=== PATIENT | female | born 1985 | race Caucasian/White ===

== ENCOUNTER → 2016-05-01 | Outpatient (CLI) | payer OTHER ==
[~2016-05-01] MED LIST: IBUP-1427 PO; OXYC5TAB PO; PEDICHW50 PO
== END | disposition home or self-care (01) ==
LOC: C.PAPS 11:36
PROVIDERS: ATTEND Physician Assistant
DX: Z12.4 Encounter for screening for malignant neoplasm of cervix (principal)

== ENCOUNTER 2022-04-29 07:09 | Inpatient (IN) ==
[2022-04-29] MEDS ORDERED: LACTATED RINGER'S 1,000 ML IV SCH ×2 (08:30→11:10)
--- NOTE | 2022-04-29 08:41 | History & Physical Report ---
Date of Service April 29, 2022 Assessment & Plan (1) Previous delivery affecting , antepartum: Plan: Reviewed informed consent with patient. Given her discomfort, contractions, and 39w gestation, I am recommending that we proceed with section. She is agreeable. Questions answered. She is anxious, provided emotional support. Will call in 2nd surgeon d/t h/o cs x 2. History of Present Illness Chief Complaint: contractions Primary Care Provider: Elle Sorto, DO 36yo @ 39 0/7, presented to L&D with painful contractions. They are irregular. No ROM, no vaginal bleeding. + movement. AMA Weekly NST's @ 36 weeks Prior x2 - LTCS on Op report - 39 week repeat C/S SCHEDULED FOR 05/04/[address] CHAVIS AND [address] EDWARDS ASSIST small calcifications near stomach Right CP cyst at 20 week scan persists in 24 week US MFM Consult (02/08/22 @ [facility] [place])--prominent stomach lining with some echogenic areas--nl variant consider TORCH CP cysts in patient with low risk panorama--no f/u indicated Allergies Allergy/AdvReac Type Severity Reaction Status Date / Time codeine Allergy Intermediate Hives Verified 04/29/22 07:29 (with tylenol + codeine, tolerates tylenol alone) Sulfa (Sulfonamide Allergy Intermediate hives Verified 04/29/22 07:29 Antibiotics) doxycycline AdvReac Mild Nausea Verified 04/29/22 07:29 Home Medications Medication Instructions Recorded Confirmed Type pediatric multivitamin no.76 1 tab PO BID 09/18/21 04/29/22 History (Flintstones Complete chewable tablet) Patient History Medical History Anxiety Bruxism (teeth grinding) 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 Cardiac murmur Echo performed 2018 for murmur evaluation > No significant valvular disease found Chronic lower back pain History of gastric ulcer As child History of gastroesophageal reflux (GERD) Diet controlled History of palpitations s/p unremarkable holter approximately 5 years ago per pt, no recent issues noted Surgical History History of dental surgery History of verrucae (wart) excision S/P section x2 Family History Grandmother (Paternal) Lung cancer Grandmother (Maternal) Breast cancer Other No family history of adverse response to anesthesia Denies family history of Ovarian cancer Prostate cancer Colorectal cancer Social History (Updated 04/29/22 @ 07:28 by Mae Walls RN) Smoking Status: Former smoker Second Hand Exposure: No; Hx Alcohol Use: No Hx Substance Use: No Preferred Language: Ivorian Communication Ability: Effective Echometer Engineer Required: No Beliefs That Will Affect Care: None marital status: marital status details: Stevie Bills (Lee) Current Living Situation: Spouse Current Living Situation Comment: Lives with and children current occupational status: unemployed 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 SVE: very painful exam, unable to fully reach cervix d/t patient's extreme discomfort. station is low in pelvis, cervix feels thin, but unable to really fully evaluate cervix during exam. Constitutional: WD/WN, vitals as above Respiratory: normal respiratory effort, lungs clear to auscultation no respiratory distress Cardiovascular: Rate/Rhythm: regular rate and regular rhythm Gastrointestinal (Abdomen): Inspection/Auscultation: abdomen normal to inspection Percussion/Palpation: abdomen soft; abdomen nontender Gravid. No s/s chorio or abruption. Skin: no rashes, warm and dry Psychiatric: A+Ox3, euthymic affect Results & Data ([facility]) Vital Signs (Past 12 Hours) Vital Signs Temp Pulse Resp BP 04/29/22 07:31 36.8 C 20 04/29/22 07:21 90 111/65 Coding Level of Care Code None Diagnoses Previous delivery affecting , antepartum O34.219
[2022-04-29] MEDS ORDERED: CITRIC ACID/SODIUM CITRATE 15 ML UDC PO SCH (08:45)
[2022-04-29] MEDS ORDERED: ceFAZolin 2000MG 2,000 MG/15 ML SYR IV SCH (08:45)
[2022-04-29 08:50] LABS: Basophils # (auto) 0.02 K/uL (0-0.2); Basophils % (auto) 0.3 %; Hematocrit (blood only) 34.8 % (34.1-44.9); Hemoglobin 11.8 g/dl (12.0-16.0); Immature Granulocytes # (auto) 0.03 K/uL (0.00-0.02); Immature Granulocytes % (auto) 0.4 %; Lymphocytes # (auto) 1.53 K/uL (1.2-3.4); Lymphocytes % (auto) 19.2 %; Mean Corpuscular Hgb Conc 33.9 g/dL (32.0-36.0); Mean Corpuscular Volume 94.3 fL (80.0-100.0); Mean Platelet Volume 10.8 fL (9.4-12.3); Monocytes # (auto) 0.63 K/uL (0.24-0.82); Monocytes % (auto) 7.9 %; Neutrophils # (auto) 5.77 K/uL (1.4-6.5); Neutrophils % (auto) 72.2 %; Platelet Count 206 K/uL (130-400); RDW Coefficient of Variation 12.3 % (11.5-14.5); RDW Standard Deviation 42.6 fL (36.4-46.3); Red Blood Count 3.69 M/uL (3.93-5.22); White Blood Count 7.98 K/ul (4.8-10.8)
[2022-04-29] MEDS ORDERED: fentaNYL citrate 100 MCG/2 ML VIAL ONE (08:59)
[2022-04-29] MEDS ORDERED: MoRPHine SULFATE PF 1 MG/ML 10 ML AMP/VIAL ONE (08:59)
[2022-04-29] MEDS ORDERED: OXYTOCIN 10 UNITS/ML 10ML VIAL ONE (09:03)
--- NOTE | 2022-04-29 09:13 | Anesthesiology Consultation ---
Date of Service April 29, 2022 Assessment & Plan Chart Review Chart Review: Acceptable Risk for Surgery and Patient NOT seen in Pre Admission Testing Consults Requested none ASA ASA2 Proposed Anesthesia Anesthesia Type: MAC Spinal Risk / Benefits Reviewed With: PT / POA / Parent / Guardian, Accepts Plan and Informed Consent Obtained History Surgery Operation Date: 04/29/22 09:00 Proposed Procedures p Section in DANTE - Kaleigh Leos, DO Height/Weight Height: 5 ft 2 in Weight: 69.853 kg Allergies Allergy/AdvReac Type Severity Reaction Status Date / Time codeine Allergy Intermediate Hives Verified 04/29/22 07:29 (with tylenol + codeine, tolerates tylenol alone) Sulfa (Sulfonamide Allergy Intermediate hives Verified 04/29/22 07:29 Antibiotics) doxycycline AdvReac Mild Nausea Verified 04/29/22 07:29 Medications Home Medications Medication Instructions Recorded Confirmed Last Taken pediatric multivitamin no.76 1 tab PO BID 09/18/21 04/29/22 03/29/22 (Flintstones Complete chewable tablet) Active Medications Generic Name Dose Route Start Last Admin Trade Name Freq PRN Reason Stop Dose Admin Lactated Ringer's 1,000 mls @ 999 mls/hr 04/29/22 08:30 04/29/22 08:35 Lr IV 04/29/22 09:30 999 mls/hr .Q1H1M CASSANDRA Administration NPO Date Last Intake of Fluids: 04/28/22 Time Last Intake of Fluids: 20:00 Date Last Intake of Solids: 04/28/22 Time Last Intake of Solids: 20:00 Past Medical History Medical History Anxiety 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 (teeth grinding) 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 Cardiac murmur Echo performed 2018 for murmur evaluation > No significant valvular disease found Chronic lower back pain History of gastric ulcer As child History of gastroesophageal reflux (GERD) Diet controlled History of palpitations s/p unremarkable holter approximately 5 years ago per pt, no recent issues noted Exercise / Class Metabolic Activity II 4-5 Yardwork/Stairs/Walk up hill Past Family History Family History Grandmother (Paternal) Lung cancer Grandmother (Maternal) Breast cancer Other No family history of adverse response to anesthesia Denies family history of Ovarian cancer Prostate cancer Colorectal cancer Past Surgical History Surgical History History of dental surgery History of verrucae (wart) excision S/P section x2 Past Anesthesia History No Hx of Anesthesia Complications and No Family Hx of Anesthesia Complications History of PONV No Hx of PONV and No Hx of Motion Sickness Social History Smoking Status: Former smoker Hx Alcohol Use: No Hx Substance Use: No substance use type: does not use Review of Systems no chest pain or sob Physical Exam Vital Signs Last Vital Signs Temp 36.8 C 04/29/22 07:31 Pulse 95 H 04/29/22 09:09 Resp 20 04/29/22 07:31 BP 111/65 04/29/22 07:21 Pulse Ox 100 04/29/22 09:09 ENMT Mouth: no TMJ abnormality Thyromental Distance: > or= 3.5 Finger Breadths Mallampati Class: II Neck normal visual inspection Respiratory normal respiratory effort Auscultation: lungs clear to auscultation bilaterally Cardiovascular Rate/Rhythm: regular rate and regular rhythm Musculoskeletal Spine: normal cervical ROM Neurologic moves all extremities Psychiatric Orientation: alert and oriented x 3 Testing Laboratory Results 04/29/22 08:35
[2022-04-29] MEDS ORDERED: LACTATED RINGER'S 500 ML IV PRN (09:14)
[2022-04-29] MEDS ORDERED: ONDANSETRON INJ 2 MG/ML 2 ML VIAL IV PRN (09:14)
[2022-04-29] MEDS ORDERED: NALBUPHINE HCL INJ 10 MG/ML AMP IV PRN (09:14)
[2022-04-29] MEDS ORDERED: HYDROmorphone INJ 0.5 MG/0.5 ML SYR IV PRN (09:14)
[2022-04-29] MEDS ORDERED: ePHEDrine sulfate 50 MG/ML AMP IV PRN (09:14)
[2022-04-29] MEDS ORDERED: MoRPHine SULFATE PF 1 MG/ML 10 ML AMP/VIAL INT SPINAL ONE (09:14)
[2022-04-29] MEDS ORDERED: NALOXONE HCL 0.08 MG in SYRINGE 1.8 ML IV PRN (09:14)
[2022-04-29] MEDS ORDERED: diphenhydrAMINE 50 MG/ML VIAL IV PRN (09:14)
[2022-04-29] MEDS ORDERED: NALOXONE HCL 1 MG in SODIUM CHLORIDE 0.9% 1000ML 1,000 ML IV PRN (09:14)
[2022-04-29] MEDS ORDERED: NALOXONE HCL 0.4 MG/1 ML VIAL/CARP IV PRN (09:14)
[2022-04-29] MEDS ORDERED: SODIUM CHLORIDE 0.9% 1000ML 1,000 ML IV SCH (09:15)
[2022-04-29] MEDS ORDERED: NO NARCOTICS OR SEDATIVES SCH (09:15)
[2022-04-29] MEDS ORDERED: DC INTRASPINAL MORPHINE SCH (09:15)
[2022-04-29] MEDS ORDERED: PHENYLEPHRINE 100MCG/ML 5ML SYR ONE (09:35)
[2022-04-29] MEDS ORDERED: ONDANSETRON INJ 2 MG/ML 2 ML VIAL ONE (09:42)
[2022-04-29 10:17] LABS: CO2 Cord Arterial Blood 57 mmHg (39.1-73.5); HCO3 Cord Arterial Blood 27 mmol/L (19.7-28.5); Oxygen Sat Cord Arterial Blood < 60.0 % (<60); PO2 Cord Arterial Blood 11 mmHg (4.1-31.7); pH Cord Arterial Blood 7.28 (7.1-7.38)
[2022-04-29 10:18] LABS: Base Excess Cord Venous Blood -1.3 mEq/L (-7.7-1.9); Cord Venous Blood HCO3 24 mmol/L (18.4-26.8); Cord Venous Blood PCO2 43 mmHg (30.4-57.2); Cord Venous Blood PO2 20 mmHg (14.1-43.3); Cord Venous Blood pH 7.36 (7.20-7.44); O2 Saturation Cord Venous Bld < 60.0 % (<68)
--- NOTE | 2022-04-29 10:52 | Operative Report ---
PG Post Operative Report Pre & Post Diagnosis Operation Date: 04/29/22 09:00 Pre-Op Diagnosis: Section x 2; Desires Repeat Section. Post-Op Diagnosis: Section x 2; Desires Repeat Section. I identified the patient and participated in the time-out.: Yes Procedure Operation Date: 04/29/22 09:00 Actual Procedures Repeat Low Transverse Section in LD; Live Male at 0949(Bilateral) - Kaleigh Leos DO Surgeon Kaleigh Leos DO Outside Installation Machinist Song Ha MD Estimated Blood Loss 500 Findings Consistent with Post-Op Diagnosis Viable male , Apgars 9/10. Weight pending, please see nursery records. Normal appearing fallopian tubes, ovaries. Lower uterine segment is very thin - see-through prior to incision. Specimens cord blood, cord gas, placenta Drains galdamez clear yellow Anesthesia Type Spinal Complications none Disposition Accompanied Patient To Recovery: No Disposition: L&D Indications 36yo @ 39 0/7, presented with contractions and pelvic pain. station low in pelvis. Agreed to proceed to OR for section. Description of Procedure The patient was seen in her labor and delivery room, risks benefits and alternatives to surgery were reviewed. Informed consent obtained. Questions were answered. She was taken to the operating room, spinal anesthesia was administered. She was then prepared and draped in the usual sterile fashion in the supine position with a leftward tilt. Timeout was confirmed. A Pfannenstiel skin incision was made with a scalpel, and carried through to the underlying layer of fascia. Fascia was nicked at midline, and this incision was extended bilaterally. The superior aspect of the fascial incision was grasped with Tobias clamps x2, elevated off the underlying rectus abdominis muscles, and dissected sharply and bluntly. In similar fashion, the inferior aspect of the fascial incision was dissected. The rectus abdominis muscles were , and the peritoneum was entered bluntly digitally. This was extended bilaterally. The bladder flap was taken down carefully using Metzenbaum scissors. Lower uterine segment very thin. Using a new scalpel, a low transverse uterine incision was created. Clear amniotic fluid noted. The infant was delivered from a cephalic presentation. The head delivered, followed by shoulders and body. Spontaneous cry on the field. The cord was doubly clamped and cut, and the was handed off to the waiting lumber straightened. A segment was retained for cord gases. Cord blood was obtained. The placenta was delivered spontaneously intact. The uterus was exteriorized, and cleared of all clots and debris. The hysterotomy incision was reapproximated using 0 Vicryl in a running locked stitch. Multiple additional [id number] sutures used to reapproximate the thin JOSÉ LUIS. The incision apex on right side of uterus entered the uterine vasculature. An O'Waverly stitch was used above and below the apex of the incision, placing pressure on the uterine vessels, allowing for excellent hemostasis. A second layer of the same suture was used to imbricate the incision. Posterior uterus was evaluated and normal. The uterus was returned to the abdomen, and gutters were cleared of clots and debris. Excellent hemostasis was observed. The fascial incision was reapproximated using 0 Vicryl in a running stitch. The subcutaneous tissue was irrigated, and reapproximated using 2-0 plain gut in a running stitch. The skin was reapproximated using 4-0 Vicryl in a running subcuticular stitch. Steri-Strips and a bandage were applied. The patient tolerated the procedure well, and will be taken to the recovery area in stable and good condition. Sponge, instrument, needle counts correct x 2. I attest to the content of the Intraoperative Record and any orders documented therein. Any exceptions are noted below. OB Procedure Charges 90839
--- NOTE | 2022-04-29 11:00 | Anesthesiology Progress Note ---
Date of Service April 29, 2022 Anesthesia Post Procedure Vital Signs Vital Signs: Temp Pulse Resp BP Pulse Ox 04/29/22 07:31 36.8 C 20 04/29/22 10:58 63 96/50 L 04/29/22 10:56 63 100 04/29/22 10:51 64 100 04/29/22 10:48 73 94 04/29/22 10:46 65 100 04/29/22 10:45 67 94/56 L 04/29/22 09:14 88 100 04/29/22 09:09 95 H 100 04/29/22 07:21 90 111/65 Transfer of Care Handoff Completed per policy Notes Mental Status: alert / awake / arousable Patient Amnestic to Procedure: Yes Nausea / Vomiting: adequately controlled Pain: adequately controlled Airway Patency, RR, SpO2: stable & adequate BP & HR: stable & adequate Hydration State: stable & adequate Neuraxial Anesthesia: was administered and sensory block is resolving Anesthetic Complications: no major complications apparent and Pt Satisfied with anesthetic care
[2022-04-29] MEDS ORDERED: HYDROCORTISONE ACETATE 25 MG SUPP PR PRN (11:10)
[2022-04-29] MEDS ORDERED: DIPHTHERIA/TETANUS/PERTUSSIS 0.5 ML SYR/VIAL IM ONE (11:10)
[2022-04-29] MEDS ORDERED: BENZOCAINE 20% AER SPR 82.5 GM CAN EXT PRN (11:10)
[2022-04-29] MEDS ORDERED: OXYTOCIN 30 UNITS in LACTATED RINGER'S 1,000 ML IV SCH (11:10)
[2022-04-29] MEDS ORDERED: SENNA 8.6 MG TAB PO PRN (11:10)
[2022-04-29] MEDS ORDERED: MAGNESIUM HYDROXIDE SUSP 30 ML UDC PO PRN (11:10)
[2022-04-29] MEDS: OXYTOCIN 30 UNITS in LACTATED RINGER'S 1,000 ML IV SCH ×2 (11:50→20:24)
[2022-04-29] MEDS: KETOROLAC 30 MG/ML VIAL IV PRN (11:52)
[2022-04-29] MEDS: SIMETHICONE 80 MG CHEW PO SCH ×3 (13:05→20:24)
[2022-04-29] MEDS: DOCUSATE SODIUM 100 MG CAP PO SCH (20:24)
[2022-04-30] MEDS: KETOROLAC 30 MG/ML VIAL IV PRN (00:02)
[2022-04-30] MEDS ORDERED: ONDANSETRON INJ 2 MG/ML 2 ML VIAL IV PRN (03:14)
[2022-04-30] MEDS ORDERED: KETOROLAC 30 MG/ML VIAL IV PRN (03:14)
[2022-04-30] MEDS ORDERED: diphenhydrAMINE Capsule 25 MG CAP PO PRN (03:14)
[2022-04-30] MEDS ORDERED: oxyCODONE/ACETAMINOPHEN 5mg/325mg TAB PO PRN (03:14)
[2022-04-30] MEDS ORDERED: MEPERIDINE HCL 50 MG/ML CARP IV PRN (03:14)
[2022-04-30] MEDS ORDERED: PROMETHAZINE HCL 25 MG in SODIUM CHLORIDE 0.9% 50 ML IV PRN (03:14)
[2022-04-30] MEDS ORDERED: diphenhydrAMINE 50 MG/ML VIAL IV PRN (03:14)
--- NOTE | 2022-04-30 07:25 | Obstetrical Progress Note ---
Date of Service April 30, 2022 Assessment & Plan (1) Previous delivery affecting , antepartum: POD#1, doing well. Routine postop care. Incision bandage is clean/dry. Eating/drinking ok. Passing gas. Pain controlled. Subjective Ambulation: ambulating normally Voiding: no voiding problems Diet Tolerance:: regular diet Lochia:: Moderate Review of Systems All systems reviewed & are unremarkable except as noted in HPI & below Physical Exam Constitutional WD/WN, vitals as above no acute distress Respiratory normal respiratory effort Cardiovascular Rate/Rhythm: regular rate and regular rhythm Gastrointestinal (Abdomen) Inspection/Auscultation: abdomen normal to inspection; abdomen not distended Percussion/Palpation: abdomen soft Genitourinary OB Exam Abdomen: + fundal height Fundus: + firm; not tender Results & Data ([facility]) Vital Signs (Past 12 Hours) Vital Signs Temp Pulse Resp BP Pulse Ox O2 Del Method 04/30/22 03:00 18 99 04/30/22 02:00 18 100 04/30/22 01:00 96 H 04/30/22 00:00 18 100 04/30/22 00:00 36.5 C 69 18 102/64 100 Room Air 04/29/22 23:00 18 96 04/29/22 22:00 16 96 04/29/22 20:51 16 98 04/29/22 20:04 36.5 C 69 16 111/69 100 Room Air 04/29/22 20:00 16 98
[2022-04-30] MEDS: IBUPROFEN 600 MG TAB PO PRN ×3 (08:43→21:58)
[2022-04-30] MEDS: SIMETHICONE 80 MG CHEW PO SCH ×4 (08:43→20:18)
[2022-04-30] MEDS: FERROUS SULFATE 325 MG TAB PO SCH (08:43)
[2022-04-30] MEDS: PRENATAL VITAMIN 1 TAB PO SCH (08:43)
[2022-04-30] MEDS: DOCUSATE SODIUM 100 MG CAP PO SCH ×2 (08:43→20:18)
[2022-04-30 09:41] LABS: Basophils # (auto) 0.02 K/uL (0-0.2); Basophils % (auto) 0.2 %; Eosinophils # (auto) 0.01 K/uL (0-0.50); Eosinophils % (auto) 0.1 %; Hematocrit (blood only) 30.9 % (34.1-44.9); Hemoglobin 10.5 g/dl (12.0-16.0); Immature Granulocytes # (auto) 0.04 K/uL (0.00-0.02); Immature Granulocytes % (auto) 0.4 %; Lymphocytes # (auto) 0.79 K/uL (1.2-3.4); Mean Corpuscular Hemoglobin 32.6 pg (25.0-34.0); Mean Platelet Volume 10.7 fL (9.4-12.3); Monocytes # (auto) 0.75 K/uL (0.24-0.82); Monocytes % (auto) 6.6 %; Neutrophils # (auto) 9.73 K/uL (1.4-6.5); Neutrophils % (auto) 85.7 %; Platelet Count 178 K/uL (130-400); RDW Coefficient of Variation 12.3 % (11.5-14.5); RDW Standard Deviation 42.5 fL (36.4-46.3); Red Blood Count 3.22 M/uL (3.93-5.22); White Blood Count 11.34 K/ul (4.8-10.8)
--- NOTE | 2022-05-01 05:33 | Obstetrical Progress Note ---
Date of Service <Hodan SanchezDO xiomara - Last Filed: 05/01/22 06:10> May 01, 2022 Assessment & Plan <Hodan SanchezalbaniadarbyDO - Last Filed: 05/01/22 06:10> (1) care following delivery: Patient is PPD 2 s/p repeat C section and doing well. - Eating well, voiding well, ambulating well - Vitals reviewed and within normal limits - Pain well controlled with analgesics - OOB, ambulation, diet progression as tolerated - Blood type: A+, GBS neg, rubella immune - Plan to discharge today - After discharge, 6 week follow up with Dr. Leos <Bing Ha MD - Last Filed: 05/01/22 06:54> (1) care following delivery: Subjective <Hodan SanchezalbaniadarbyDO - Last Filed: 05/01/22 06:10> Patient is a 36 yo female is POD #2 following delivery at 39+0 weeks. She reports feeling well overall this morning. She endorses abdominal cramping (especially with breast feeding) and mild pain well managed on a nalgesics. Voiding without issue. Tolerating regular meals overnight and able to ambulate some. She has passed gas and no bowel movement. Persistent lochia with some improvement this morning. Currently breast feeding. Review of Systems Denies fever, chills, sweats. Denies SOB, difficulty breathing, chest pain, palpitations, and chest pressure. Denies breast pain. Denies dysuria. Denies headache or changes in vision. Physical Exam <Hodan SanchezDO xiomara - Last Filed: 05/01/22 06:10> General: Alert and oriented. No acute distress. CV: Regular rate and rhythm. No murmurs. Respiratory: CTA bilaterally. No rhonchi, wheezes, or crackles. No increased work of breathing. Abdomen: Positive bowel sounds. Soft, nontender, and nondistended. Uterus: Fundus firm and palpable 2 cm below umbilicus. Surgical scar clean and healing well. Lower extremities: No LE edema. No deep calf pain. Satnam's negative bilaterally. Results & Data ([facility]) <Hodan GomesBetty Rosue DO - Last Filed: 05/01/22 06:10> Vital Signs (Past 12 Hours) Vital Signs Temp Pulse Resp BP Pulse Ox O2 Del Method 05/01/22 01:00 36.7 C 70 18 99/67 L 100 Room Air 04/30/22 20:00 36.7 C 74 16 103/68 100 Room Air <Bing Ha MD - Last Filed: 05/01/22 06:54> Co-Signing Physician Notes Resident Physician Supervision Note: I interviewed and examined the patient. Discussed with Dr. Rouse and agree with findings and plan as documented in the note. Any exceptions or clarifications are listed here: [ ] Documented By: Bing Ha MD, FACOG Resident Activity Tracking <Hodan Rouse DO - Last Filed: 05/01/22 06:10> Resident Involvement: Resident Care Provided Care Provided: OB Delivery
[2022-05-01] MEDS: IBUPROFEN 600 MG TAB PO PRN ×2 (05:37→11:14)
[2022-05-01 07:31] LABS: Hematocrit (blood only) 31.3 % (34.1-44.9); Hemoglobin 10.7 g/dl (12.0-16.0)
[2022-05-01] MEDS: SIMETHICONE 80 MG CHEW PO SCH ×2 (08:45→13:00)
[2022-05-01] MEDS: PRENATAL VITAMIN 1 TAB PO SCH (08:46)
[2022-05-01] MEDS: FERROUS SULFATE 325 MG TAB PO SCH (08:46)
[2022-05-01] MEDS: DOCUSATE SODIUM 100 MG CAP PO SCH (08:46)
--- NOTE | 2022-05-03 22:28 | Discharge Summary ---
Date of Service May 03, 2022 Admission HPI Per Admitting Provider 36yo @ 39 0/7, presented to L&D with painful contractions. They are irregular. No ROM, no vaginal bleeding. + movement. AMA Weekly NST's @ 36 weeks Prior x2 - LTCS on Op report - 39 week repeat C/S SCHEDULED FOR 05/04/[address] CHAVIS AND DR. LEOS ASSIST small calcifications near stomach Right CP cyst at 20 week scan persists in 24 week US MFM Consult (02/08/[address] [facility] [place])--prominent stomach lining with some echogenic areas--nl variant consider TORCH CP cysts in patient with low risk panorama--no f/u indicated Discharge Data Consultations 04/29/22 08:23 Consult Anesthesiology Stat Procedures Performed Operation Date: 04/29/22 09:00 Actual Procedures p Section in LD; Live Male at 0949(Bilateral) - Kaleigh Leos, Hospital Course (1) Previous delivery affecting , antepartum: Admitted in labor, h/o CS x 2, therefore repeat section performed. Routine recovery. DC home POD2. Please see chart for further details. Coding Level of Care Code None Diagnoses Previous delivery affecting , antepartum O34.219
== END 2022-05-01 14:00 | disposition home or self-care (01) | DRG 788 ==
LOC: OPB 07:09 → 4S1 07:11 → 4E2 13:12